=== PATIENT | female | born 1950 | race Caucasian/White ===

== ENCOUNTER 2017-08-11 09:49 | Emergency (ER) | payer MEDICARE, OTHER, SELFPAY ==
[2017-08-11 09:54] VITALS: BP 157/68; PULSE 68; RESP 16; TEMP 36.6; O2SAT 100
[2017-08-11] MEDS: MECLIZINE HCL 12.5 MG TABLET 50 MG PO (10:41)
--- NOTE | 2017-08-11 11:10 | DI.MRI.S_ITS ---
PROCEDURE: MR HEAD/BRAIN WO CON INDICATIONS: vertigo, unable to walk TECHNIQUE: Noncontrast axial T1 spin echo, axial T2 fast spin echo, sagittal and axial FLAIR, coronal T2 fast spin echo, axial gradient echo, axial diffusion and ADC through the brain. COMPARISON: [facility], CT, HEAD WITHOUT CONTRAST, 05/31/2011, 8:45. FINDINGS: Image quality: Excellent. CSF spaces: There is mild cerebral volume loss with prominence of the ventricles and sulci. Basal cisterns are patent. No extra-axial fluid collections. Brain: Diffusion weighted images demonstrate no acute infarcts. No intracranial hemorrhage, mass, or mass effect. There is minimal periventricular white matter T2 hyperintensity consistent with mild chronic small vessel ischemic changes. Brainstem appears normal. Normal intravascular flow voids are present. No abnormal intracranial enhancement. Skull and face: Calvarium has normal marrow signal. Orbits appear normal. Sinuses: Sinuses are clear. There is partial fluid opacification of the left mastoid air cells suggestive of mild mastoiditis. IMPRESSION: 1. No infarct or other acute intracranial abnormality. Dictated by: Rolan Pickard M.D. on 08/11/2017 at 12:47 Approved by: Rolan Pickard M.D. on 08/11/2017 at 12:50
[2017-08-11 11:19] LABS: Mean Corpuscular HGB Conc 34.1 % (30-36); Mean Corpuscular Hemoglobin 28.1 PG (26-34); Mean Corpuscular Volume 82.3 fL (80-100); Platelet Count 140 X10^3/uL (150-400); Red Blood Cell Count 5.34 X10^6/uL (4.0-5.2); Red Cell Distribution Width 14.1 % (11.6-14.8); White Blood Cell Count 8.1 X10^3/uL (4.5-11.0)
[2017-08-11 11:29] VITALS: BP 117/61; PULSE 63; RESP 16; O2SAT 100
[2017-08-11 11:36] LABS: Alanine Aminotransferase 38 IU/L (9-52); Albumin 4.6 g/dL (3.5-5.0); Albumin Globulin Ratio 1.4 (1.0-2.8); Alkaline Phosphatase 57 U/L (38-126); Aspartate Aminotransferase 30 IU/L (14-36); BUN Creatinine Ratio 21.4 (6-22); Bilirubin Total 0.6 mg/dL (0.2-1.3); Blood Urea Nitrogen 15 mg/dL (7-17); Calcium 10.4 mg/dL (8.4-10.2); Carbon Dioxide 25 mmol/L (22-32); Chloride 101 mmol/L (98-107); Estimated Glomerular Filt Rate > 60.0 mL/min (>60); Globulin 3.3 g/dL (1.7-4.1); Glucose 130 mg/dL (80-110); HEMOLYSIS < 15 (0-50); Magnesium 2.1 mg/dL (1.6-2.3); Potassium 4.7 mmol/L (3.4-5.1); Sodium 141 mmol/L (137-145); Total Protein 7.9 g/dL (6.3-8.2)
[2017-08-11 11:38] LABS: Morphology Comment Normal Morphology; Neutrophils Absolute Manual 5427 /uL (3000-5900); Total Cells Counted 100
[2017-08-11 11:54] LABS: Troponin I < 0.012 ng/mL (0.01-0.034)
[2017-08-11 13:39] VITALS: BP 122/67; PULSE 62; RESP 12; O2SAT 99
--- NOTE | 2017-08-11 13:48 | ED.DIZZY ---
HPI - Dizziness General Chief Complaint: Dizziness Stated Complaint: Vertigo History of Present Illness HPI Narrative: HPI 66-year-old female with a history of vertiginous episodes presents with a typical episode that is been present since yesterday morning. * Onset (acute prolonged episode, recurrent positional episodes, recurrent non-positional episodes): present since awakening yesterday, continuous with positional exacerbations. * Recent medication changes: [None] * Hearing changes: [None] * Neck pain, unusual neck trauma: [Denies trauma, working with head held in an usual position for an extended period of time, chiropractic manipulation, or lateral neck pain.] * Changes in vision: [denies blurring, diplopia, graying of vision or further acute changes.] M/S/F/SocHx notable for: right mastoiditis, status post resection; remainder reviewed with patient and in chart. ROS: Negative constitutional, eye, cardiovascular, pulmonary, GI, , MSK, skin, neurologic, psychiatric, endocrine unless noted in the HPI. Exam Gen: [pleasant, uncomfortable but nontoxic-appearing.] HEENT: [Normocephalic, atraumatic, TMs clear bilaterally without effusion, bulging, or erythema. Write external auditory canal significantly enlarged with well healed surgical scarring. Preauricular skin, pinna, and external canal without visible lesions bilaterally.] Resp: [Clear to auscultation bilaterally] Card: [Regular rate and rhythm with no murmurs rubs or gallops.] GI: [Nontender, nondistended] : Deferred MSK: No visible deformities, strength and tone WNL. Skin: Normal color with no visible lesions. Neuro: Gen. [AO x 3, no facial asymmetry, no gaze preference, no slurring of speech.] Cranial nerves. II-III: pupils equal and reactive to afferent and efferent stimuli (4->2mm bilaterally); III, IV, : EOMI, V1-V3: sensation to touch bilaterally intact; VII: no facial asymmetry (frown / smile); VIII: head impact testing without corrective saccades when the head is rotated to either side hearing grossly intact bilaterally; X: phonation intact, uvula midline; XI: trapezius 5/5 bilaterally, XII: tongue midline. Brainstem: horizontal eye movements with [smooth] conjugate pursuit and with a rightward fast beat nystagmus on the leftward gaze which is not fatigable, left eccentric gaze with nystagmus, right eccentric gaze with[out] nystagmus. Alternate cover test [without] skew. Cerebellar no pronator drift, [id number] testing without dysmetria, . 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 [place]-Hallpike: unable to tolerate. [place]: unable/unwilling to stand. Gait: unable/unwilling to stay in.. Psych: Mood and affect appropriate.[ Labs / Imaging (pertinent):] [ MRI brain: no infarct or other acute intracranial abnormality. WBC 8.1, hemoglobin 15.0 sodium 141, potassium 4.7, glucose 130, troponin less than 0.012. EKG: SR at [69] BPM with no ST-segment elevations or depressions, T-wave inversions or new LBBB. ME interval 160 msec, QTc 410 msec, no delta waves, epsilon waves, coved or saddle ST-segment changes in leads V1-3, preseptal or inferior lead Q-waves, biphasic P-waves, or T-wave inversions; no LVH. ] MDM Previous chart, nursing note, and vitals reviewed. A: 66-year-old female with a history of vertiginous episodes presents with a typical episode that is been present since yesterday morning. DDx: [acute vestibular syndrome (vestibulitis, labrynthitis, BPPV, Chiari malformation, cerebellar tumors, MS, anemia, cardiac, Meniere?s disease, medications, migraine associated vertigo, posterior circulation ischemia (posterior fossa CVA, vertebral artery stenosis or dissection, vertibrobasilar artery TIA, stenosis, or dissection).] Evaluation: MRI brain without evidence of Chiari malformation, cerebellar tumors, MS, or posterior circulation ischemia. No identifiable risk factors or findings on exam to suggest cervical artery dissection. Given the relatively thomas onset and sustained nature the patient's symptoms strongly doubt TIA/stenosis. Favor vestibulitis given the absence of hearing changes. Patient given meclizine with significant improvement symptoms and a steady gait. Impression: vertigo (please reference below for remainder of encounter information) Related Data Home Medications Medication Instructions Recorded Confirmed Allergy Relief(diphenhydramin) 1 tab PO PRN PRN 08/11/17 08/11/17 aspirin 81 mg PO DAILY 08/11/17 08/11/17 duloxetine [Cymbalta] 30 mg PO DAILY 08/11/17 08/11/17 gabapentin 200 mg PO BID 08/11/17 08/11/17 glipizide 2.5 mg PO BID 08/11/17 08/11/17 lisinopril 2.5 mg PO DAILY 08/11/17 08/11/17 metformin 1,000 mg PO BID 08/11/17 08/11/17 montelukast 10 mg PO BEDTIME 08/11/17 08/11/17 rosuvastatin 40 mg PO QPM 08/11/17 08/11/17 Previous Rx's Medication Instructions Recorded ranitidine HCl [Zantac] 150 mg PO BID #30 tab 11/05/12 Allergies Allergy/AdvReac Type Severity Reaction Status Date / Time codeine Allergy Mild EMESIS Verified 08/11/17 09:57 penicillin V Allergy Mild UNKNOWN Verified 08/11/17 09:57 Opioids - Morphine Analogues AdvReac Severe DEPENDENCE Verified 08/11/17 09:57 [OPIOIDS - MORPHINE ANALOGUES] [facility] Surgical History History of knee replacement History of total mastectomy Status post hysterectomy Family History Mother Cancer of breast Sister Cancer of breast Social History Smoking Status: Never smoker Exam Initial Vital Signs Initial Vital Signs: Vital Signs Temperature 97.9 F 08/11/17 09:54 Pulse Rate 68 08/11/17 09:54 Respiratory Rate 16 08/11/17 09:54 Blood Pressure 157/68 H 08/11/17 09:54 Pulse Oximetry 100 08/11/17 09:54 Course Orders Ordered: ED Orders 08/11/17 10:02 EKG-12 Lead Stat 08/11/17 11:08 Complete Blood Count MAN DIFF Stat Comprehensive Metabolic Panel Stat Magnesium Stat Troponin I Stat 08/11/17 11:10 MR head/brain wo con Stat Discontinued Medications Meclizine HCl (Antivert) 50 mg PO NOW ONE Stop: 08/11/17 10:38 Last Admin: 08/11/17 10:41 Dose: 50 mg Vital Signs - 8 hr 08/11/17 09:54 08/11/17 11:29 08/11/17 13:39 Temperature 97.9 F Pulse Rate 68 63 62 Respiratory Rate 16 16 12 Blood Pressure 157/68 H Blood Pressure [Left Arm] 117/61 122/67 H Pulse Oximetry 100 100 99 MDM - Dizziness Lab Data Result diagrams: 08/11/17 11:08 08/11/17 11:08 Lab Results 08/11/17 08/11/17 Range/Units 11:08 11:08 WBC 8.1 (4.5-11.0) X10^3/uL RBC 5.34 H (4.0-5.2) X10^6/uL Hgb 15.0 (12.0-16.0) g/dL Hct 44.0 (36-46) % MCV 82.3 (80-100) fL MCH 28.1 (26-34) PG MCHC 34.1 (30-36) % RDW 14.1 (11.6-14.8) % Plt Count 140 L (150-400) X10^3/uL Total Counted 100 Seg Neutrophils % 67.0 (38-70) % Lymphocytes % (Manual) 18.0 L (25-45) % Atypical Lymphs % 4.0 H ( - 0) % Monocytes % (Manual) 9.0 (2-11) % Eosinophils % (Manual) 2.0 (2-4) % Neutrophils # (Manual) 5427 (1468-7981) /uL Differential Comment Normal morphology RBC Morphology Not Reportable Sodium 141 (137-145) mmol/L Potassium 4.7 (3.4-5.1) mmol/L Chloride 101 (98-107) mmol/L Carbon Dioxide 25 (22-32) mmol/L BUN 15 (7-17) mg/dL Creatinine 0.70 (0.52-1.04) mg/dL Estimated GFR > 60.0 (>60) mL/min BUN/Creatinine Ratio 21.4 (6-22) Glucose 130 H (80-110) mg/dL Calcium 10.4 H (8.4-10.2) mg/dL Magnesium 2.1 (1.6-2.3) mg/dL Total Bilirubin 0.6 (0.2-1.3) mg/dL AST 30 (14-36) IU/L ALT 38 (9-52) IU/L Alkaline Phosphatase 57 (38-126) U/L Troponin I < 0.012 (0.01-0.034) ng/mL Total Protein 7.9 (6.3-8.2) g/dL Albumin 4.6 (3.5-5.0) g/dL Globulin 3.3 (1.7-4.1) g/dL Albumin/Globulin Ratio 1.4 (1.0-2.8) Discharge Plan Departure Prescriptions: No Action ranitidine HCl [Zantac] 150 MG tablet 150 mg PO BID Qty: 30 RF: 0 duloxetine [Cymbalta] 30 MG capsule,delayed release(DR/EC) 30 mg PO DAILY RF: 0 Allergy Relief(diphenhydramin) 1 tab PO PRN PRN (Reason: Allergy Symptoms) RF: 0 aspirin 81 mg Tablet,Delayed Release (Dr/Ec) 81 mg PO DAILY RF: 0 glipizide 2.5 mg tablet extended release 24hr 2.5 mg PO BID RF: 0 metformin 1,000 mg Tablet 1,000 mg PO BID RF: 0 montelukast 10 mg Tablet 10 mg PO BEDTIME RF: 0 gabapentin 100 mg Capsule 200 mg PO BID RF: 0 lisinopril 2.5 mg tablet 2.5 mg PO DAILY RF: 0 rosuvastatin 40 mg tablet 40 mg PO QPM RF: 0
--- NOTE | 2017-08-11 13:51 | ED_ITS ---
HPI - Dizziness General Chief Complaint: Dizziness Stated Complaint: Vertigo History of Present Illness HPI Narrative: HPI 66-year-old female with a history of vertiginous episodes presents with a typical episode that is been present since yesterday morning. * Onset (acute prolonged episode, recurrent positional episodes, recurrent non- positional episodes): present since awakening yesterday, continuous with positional exacerbations. * Recent medication changes: [None] * Hearing changes: [None] * Neck pain, unusual neck trauma: [Denies trauma, working with head held in an usual position for an extended period of time, chiropractic manipulation, or lateral neck pain.] * Changes in vision: [denies blurring, diplopia, graying of vision or further acute changes.] M/S/F/SocHx notable for: right mastoiditis, status post resection; remainder reviewed with patient and in chart. ROS: Negative constitutional, eye, cardiovascular, pulmonary, GI, , MSK, skin , neurologic, psychiatric, endocrine unless noted in the HPI. Exam Gen: [pleasant, uncomfortable but nontoxic-appearing.] HEENT: [Normocephalic, atraumatic, TMs clear bilaterally without effusion, bulging, or erythema. Write external auditory canal significantly enlarged with well healed surgical scarring. Preauricular skin, pinna, and external canal without visible lesions bilaterally.] Resp: [Clear to auscultation bilaterally] Card: [Regular rate and rhythm with no murmurs rubs or gallops.] GI: [Nontender, nondistended] : Deferred MSK: No visible deformities, strength and tone WNL. Skin: Normal color with no visible lesions. Neuro: Gen. [AO x 3, no facial asymmetry, no gaze preference, no slurring of speech.] Cranial nerves. II-III: pupils equal and reactive to afferent and efferent stimuli (4->2mm bilaterally); III, IV, : EOMI, V1-V3: sensation to touch bilaterally intact; VII: no facial asymmetry (frown / smile); VIII: head impact testing without corrective saccades when the head is rotated to either side hearing grossly intact bilaterally; X: phonation intact, uvula midline; XI: trapezius 5/5 bilaterally, XII: tongue midline. Brainstem: horizontal eye movements with [smooth] conjugate pursuit and with a rightward fast beat nystagmus on the leftward gaze which is not fatigable, left eccentric gaze with nystagmus, right eccentric gaze with[out] nystagmus. Alternate cover test [without] skew. Cerebellar no pronator drift, [id number] testing without dysmetria, . Motor bilateral 5/5 watch assembly instructor strength and intact hand sensation to touch, bilateral 5/5 dorsiflexion/plantarflexion and foot sensation intact to touch. [place]Hallpike: unable to tolerate. [place]: unable/unwilling to stand. Gait: unable/unwilling to stay in.. Psych: Mood and affect appropriate.[ Labs / Imaging (pertinent):] [ MRI brain: no infarct or other acute intracranial abnormality. WBC 8.1, hemoglobin 15.0 sodium 141, potassium 4.7, glucose 130, troponin less than 0.012. EKG: SR at [69] BPM with no ST-segment elevations or depressions, T-wave inversions or new LBBB. SC interval 160 msec, QTc 410 msec, no delta waves, epsilon waves, coved or saddle ST-segment changes in leads V1-3, preseptal or inferior lead Q-waves, biphasic P-waves, or T-wave inversions; no LVH. ] MDM Previous chart, nursing note, and vitals reviewed. A: 66-year-old female with a history of vertiginous episodes presents with a typical episode that is been present since yesterday morning. DDx: [acute vestibular syndrome (vestibulitis, labrynthitis, BPPV, Chiari malformation, cerebellar tumors, MS, anemia, cardiac, Meniere?s disease, medications, migraine associated vertigo, posterior circulation ischemia ( posterior fossa CVA, vertebral artery stenosis or dissection, vertibrobasilar artery TIA, stenosis, or dissection).] Evaluation: MRI brain without evidence of Chiari malformation, cerebellar tumors , MS, or posterior circulation ischemia. No identifiable risk factors or findings on exam to suggest cervical artery dissection. Given the relatively thomas onset and sustained nature the patient's symptoms strongly doubt TIA/ stenosis. Favor vestibulitis given the absence of hearing changes. Patient given meclizine with significant improvement symptoms and a steady gait. Impression: vertigo (please reference below for remainder of encounter information) Related Data Home Medications Medication Instructions Recorded Confirmed Allergy Relief(diphenhydramin) 1 tab PO PRN PRN 08/11/17 08/11/17 aspirin 81 mg PO DAILY 08/11/17 08/11/17 duloxetine [Cymbalta] 30 mg PO DAILY 08/11/17 08/11/17 gabapentin 200 mg PO BID 08/11/17 08/11/17 glipizide 2.5 mg PO BID 08/11/17 08/11/17 lisinopril 2.5 mg PO DAILY 08/11/17 08/11/17 metformin 1,000 mg PO BID 08/11/17 08/11/17 montelukast 10 mg PO BEDTIME 08/11/17 08/11/17 rosuvastatin 40 mg PO QPM 08/11/17 08/11/17 Previous Rx's Medication Instructions Recorded ranitidine HCl [Zantac] 150 mg PO BID #30 tab 11/05/12 Allergies Allergy/AdvReac Type Severity Reaction Status Date / Time codeine Allergy Mild EMESIS Verified 08/11/17 09:57 penicillin V Allergy Mild UNKNOWN Verified 08/11/17 09:57 Opioids - Morphine Analogues AdvReac Severe DEPENDENCE Verified 08/11/17 09:57 [OPIOIDS - MORPHINE ANALOGUES] [facility] Surgical History History of knee replacement History of total mastectomy Status post hysterectomy Family History Mother Cancer of breast Sister Cancer of breast Social History Smoking Status: Never smoker Exam Initial Vital Signs Initial Vital Signs: Vital Signs Temperature 97.9 F 08/11/17 09:54 Pulse Rate 68 08/11/17 09:54 Respiratory Rate 16 08/11/17 09:54 Blood Pressure 157/68 H 08/11/17 09:54 Pulse Oximetry 100 08/11/17 09:54 Course Orders Ordered: ED Orders 08/11/17 10:02 EKG-12 Lead Stat 08/11/17 11:08 Complete Blood Count MAN DIFF Stat Comprehensive Metabolic Panel Stat Magnesium Stat Troponin I Stat 08/11/17 11:10 MR head/brain wo con Stat Discontinued Medications Meclizine HCl (Antivert) 50 mg PO NOW ONE Stop: 08/11/17 10:38 Last Admin: 08/11/17 10:41 Dose: 50 mg Vital Signs - 8 hr 08/11/17 09:54 08/11/17 11:29 08/11/17 13:39 Temperature 97.9 F Pulse Rate 68 63 62 Respiratory Rate 16 16 12 Blood Pressure 157/68 H Blood Pressure [Left Arm] 117/61 122/67 H Pulse Oximetry 100 100 99 MDM - Dizziness Lab Data Result diagrams: 08/11/17 11:08 08/11/17 11:08 Lab Results 08/11/17 08/11/17 Range/Units 11:08 11:08 WBC 8.1 (4.5-11.0) X10^3/uL RBC 5.34 H (4.0-5.2) X10^6/uL Hgb 15.0 (12.0-16.0) g/dL Hct 44.0 (36-46) % MCV 82.3 (80-100) fL MCH 28.1 (26-34) PG MCHC 34.1 (30-36) % RDW 14.1 (11.6-14.8) % Plt Count 140 L (150-400) X10^3/uL Total Counted 100 Seg Neutrophils % 67.0 (38-70) % Lymphocytes % (Manual) 18.0 L (25-45) % Atypical Lymphs % 4.0 H ( - 0) % Monocytes % (Manual) 9.0 (2-11) % Eosinophils % (Manual) 2.0 (2-4) % Neutrophils # (Manual) 5427 (0677-4181) /uL Differential Comment Normal morphology RBC Morphology Not Reportable Sodium 141 (137-145) mmol/L Potassium 4.7 (3.4-5.1) mmol/L Chloride 101 (98-107) mmol/L Carbon Dioxide 25 (22-32) mmol/L BUN 15 (7-17) mg/dL Creatinine 0.70 (0.52-1.04) mg/dL Estimated GFR > 60.0 (>60) mL/min BUN/Creatinine Ratio 21.4 (6-22) Glucose 130 H (80-110) mg/dL Calcium 10.4 H (8.4-10.2) mg/dL Magnesium 2.1 (1.6-2.3) mg/dL Total Bilirubin 0.6 (0.2-1.3) mg/dL AST 30 (14-36) IU/L ALT 38 (9-52) IU/L Alkaline Phosphatase 57 (38-126) U/L Troponin I < 0.012 (0.01-0.034) ng/mL Total Protein 7.9 (6.3-8.2) g/dL Albumin 4.6 (3.5-5.0) g/dL Globulin 3.3 (1.7-4.1) g/dL Albumin/Globulin Ratio 1.4 (1.0-2.8) Discharge Plan Departure Prescriptions: No Action ranitidine HCl [Zantac] 150 MG tablet 150 mg PO BID Qty: 30 RF: 0 duloxetine [Cymbalta] 30 MG capsule,delayed release(DR/EC) 30 mg PO DAILY RF: 0 Allergy Relief(diphenhydramin) 1 tab PO PRN PRN (Reason: Allergy Symptoms) RF: 0 aspirin 81 mg Tablet,Delayed Release (Dr/Ec) 81 mg PO DAILY RF: 0 glipizide 2.5 mg tablet extended release 24hr 2.5 mg PO BID RF: 0 metformin 1,000 mg Tablet 1,000 mg PO BID RF: 0 montelukast 10 mg Tablet 10 mg PO BEDTIME RF: 0 gabapentin 100 mg Capsule 200 mg PO BID RF: 0 lisinopril 2.5 mg tablet 2.5 mg PO DAILY RF: 0 rosuvastatin 40 mg tablet 40 mg PO QPM RF: 0
== END 2017-08-11 13:58 | disposition home or self-care (01) ==
PROVIDERS: Emergency Provider Emergency Medicine; Family Provider Family Medicine; PCP Family Medicine
DX: R42 Dizziness and giddiness (principal)
CPT/HCPCS: 36415; 70551; 80053; 81003; 82962; 83735; 84484; 85025; 93005; 99283; 99285

== ENCOUNTER → 2018-01-26 13:56 | Outpatient (CLI) | payer MEDICARE, OTHER, SELFPAY | PROVIDERS: PCP Family Medicine; Visit Provider Family Medicine | DX: M85.832 Other specified disorders of bone density and structure, left forearm (principal); Z78.0 Asymptomatic menopausal state | CPT/HCPCS: 77080 ==

== ENCOUNTER 2019-04-11 13:30 | Emergency (ER) | payer MEDICARE, OTHER, SELFPAY ==
[2019-04-11 13:40] VITALS: BP 165/91; PULSE 98; RESP 15; TEMP 36.7; O2SAT 100; BMI 30.8
--- NOTE | 2019-04-11 13:51 | ED.GENADULT ---
HPI - General Adult General Chief complaint: Syncope Stated complaint: Vomiting Time Seen by Provider: 04/11/19 13:49 Source: patient and family Mode of arrival: EMS Limitations: no limitations History of Present Illness HPI narrative: 68-year-old female who has not been feeling well for the past 3 days with multiple episodes of vomiting here for evaluation of just not feeling well. She is a nrt-[id number] diabetic. Abdominal pain around the time of vomiting. No diarrhea. No sick contacts. Just generalized malaise. Subjective fevers. No urinary symptoms. Related Data Home Medications Medication Instructions Recorded Confirmed Allergy Relief(diphenhydramin) 1 tab PO PRN PRN 08/11/17 08/11/17 aspirin 81 mg PO DAILY 08/11/17 08/11/17 duloxetine [Cymbalta] 30 mg PO DAILY 08/11/17 08/11/17 gabapentin 200 mg PO BID 08/11/17 08/11/17 glipizide 2.5 mg PO BID 08/11/17 08/11/17 lisinopril 2.5 mg PO DAILY 08/11/17 08/11/17 metformin 1,000 mg PO BID 08/11/17 08/11/17 montelukast 10 mg PO BEDTIME 08/11/17 08/11/17 rosuvastatin 40 mg PO QPM 08/11/17 08/11/17 Previous Rx's Medication Instructions Recorded ranitidine HCl [Zantac] 150 mg PO BID #30 tab 11/05/12 meclizine 50 mg PO BID PRN #10 tab 08/11/17 ondansetron 4 mg PO Q6H PRN #10 tab 04/11/19 Allergies Allergy/AdvReac Type Severity Reaction Status Date / Time codeine Allergy Mild EMESIS Verified 08/11/17 09:57 penicillin V Allergy Mild UNKNOWN Verified 08/11/17 09:57 Opioids - Morphine Analogues AdvReac Severe DEPENDENCE Verified 08/11/17 09:57 [OPIOIDS - MORPHINE ANALOGUES] Review of Systems Constitutional Constitutional: Reports fatigue, Denies fever(s) and Reports malaise Cardiovascular Cardiovascular: Denies chest pain and Denies dyspnea Respiratory Respiratory: Denies dyspnea Gastrointestinal Gastrointestinal: Reports abdominal pain, Denies change in stool character, Reports nausea and Reports vomiting Genitourinary Genitourinary: Denies dysuria Musculoskeletal Musculoskeletal: Denies myalgias and Denies arthralgias Integumentary/Breasts Skin/Breast: Denies rash Neurologic Neurologic: Denies behavioral changes Psychiatric Psychiatric: Denies behavioral changes Endocrine Endocrine: Reports fatigue Hematologic/Lymphatic Hematologic/Lymphatic: Denies easy bleeding and Denies easy bruising Patient History Medical History Diabetes (Acute) Surgical History (Updated 07/08/17 @ 05:56 by JEFFERY Trammell) History of knee replacement History of total mastectomy Status post hysterectomy Family History (Updated 05/27/13 @ 00:00 by JEFFERY Trammell) Mother Cancer of breast Sister Cancer of breast Social History Smoking Status: Never smoker Smoking Status: Never smoker alcohol intake frequency: 0-2 drinks per day Substance Use Type: does not use Exam Initial Vital Signs Initial Vital Signs: Vital Signs Temperature 98.0 F 04/11/19 13:40 Pulse Rate 98 H 04/11/19 13:40 Respiratory Rate 15 04/11/19 13:40 Blood Pressure 165/91 H 04/11/19 13:40 Pulse Oximetry 100 04/11/19 13:40 Const General: cooperative Limitations: mental status not altered HENNM Head: normal to inspection and normocephalic Resp Effort & Inspection: normal respiratory effort Auscultation: clear to auscultation bilaterally Cardio Rate: regular rate Rhythm: regular rhythm GI Inspection: non-distended Palpation: soft and No firm Skin Lesions: no lesions Rashes: no rashes Neuro General: alert and awake Cognition: normal cognition Speech: speech normal Extrem General: normal to inspection and capillary refill normal Psych Appearance: grossly normal and well kempt Course Orders Ordered: ED Orders 04/11/19 14:10 Influenza A & B (PCR) Stat 04/11/19 14:12 EKG-12 Lead Stat 04/11/19 14:15 Complete Blood Count AUTO DIFF Stat Comprehensive Metabolic Panel Stat Ketones (Beta-Hydroxybutyrate) Stat Lipase Stat Procalcitonin Stat Troponin I Stat 04/11/19 15:00 Urine Microscopic Stat 04/11/19 15:44 Venous Blood Gas Stat Sodium Chloride (Normal Saline 0.9%) 1,000 mls @ 150 mls/hr IV CONT JOHNNIE Last Admin: 04/11/19 17:36 Dose: 150 mls/hr Documented by: FELA Discontinued Medications Sodium Chloride (Normal Saline 0.9%) 1,000 mls @ 1,000 mls/hr IV BOLUS ONE Stop: 04/11/19 14:51 Last Infusion: 04/11/19 15:30 Dose: 0 mls/hr Documented by: Admin: 04/11/19 14:19 Dose: 1,000 mls/hr Documented by: FELA Sodium Chloride (Normal Saline 0.9%) 1,000 mls @ 1,000 mls/hr IV BOLUS ONE Stop: 04/11/19 16:43 Last Infusion: 04/11/19 17:03 Dose: 0 mls/hr Documented by: Admin: 04/11/19 16:01 Dose: 1,000 mls/hr Documented by: FELA Metoclopramide HCl (Reglan) 10 mg IV NOW ONE Stop: 04/11/19 17:26 Last Admin: 04/11/19 17:32 Dose: 10 mg Documented by: FELA Ondansetron HCl (Zofran) 4 mg IV NOW ONE Stop: 04/11/19 13:53 Last Admin: 04/11/19 14:19 Dose: 4 mg Documented by: FELA Ondansetron HCl (Zofran) 4 mg IV NOW ONE Stop: 04/11/19 16:28 Last Admin: 04/11/19 16:35 Dose: 4 mg Documented by: FELA Vital Signs Vital signs: Vital Signs - 8 hr 04/11/19 13:40 04/11/19 14:47 04/11/19 15:21 Temperature 98.0 F Pulse Rate 98 H 70 71 Respiratory Rate 15 22 15 Blood Pressure 165/91 H Blood Pressure [Right Wrist] 182/80 H 141/81 H Pulse Oximetry 100 97 94 04/11/19 16:30 04/11/19 17:00 Temperature Pulse Rate 66 67 Respiratory Rate 27 H 19 Blood Pressure Blood Pressure [Right Wrist] 122/99 H 169/83 H Pulse Oximetry 99 99 Medical Decision Making Lab Data Lab results reviewed: Yes I reviewed the patient's lab results. Result diagrams: 04/11/19 14:15 04/11/19 14:15 Labs: Lab Results 04/11/19 04/11/19 04/11/19 Range/Units 14:10 14:15 14:15 WBC 8.6 (4.5-11.0) X10^3/uL RBC 5.79 H (4.0-5.2) X10^6/uL Hgb 16.6 H (12.0-16.0) g/dL Hct 48.6 H (36-46) % MCV 84.0 (80-100) fL MCH 28.7 (26-34) PG MCHC 34.1 (30-36) % RDW 13.3 (11.6-14.8) % Plt Count 153 (150-400) X10^3/uL Neut % (Auto) 63.5 (50-75) % Lymph % (Auto) 27.6 (25-40) % Christian % (Auto) 7.5 (3-14) % Eos % (Auto) 0.7 L (2-4) % Baso % (Auto) 0.7 (0-2) % Neut # (Auto) 5500 (3389-2594) /uL Lymph # (Auto) 2400 (0936-4048) /uL Christian # (Auto) 600 (0-900) /uL Eos # (Auto) 100 (0-450) /uL Baso # (Auto) 100 (0-100) /uL RBC Morphology Normal morphology Sodium 138 (137-145) mmol/L Potassium 4.7 (3.4-5.1) mmol/L Chloride 102 (98-107) mmol/L Carbon Dioxide 20 L (22-32) mmol/L BUN 15 (7-17) mg/dL Creatinine 0.60 (0.52-1.04) mg/dL Estimated GFR > 60.0 (>60) mL/min BUN/Creatinine Ratio 25.0 H (6-22) Glucose 136 H (80-110) mg/dL Calcium 10.6 H (8.4-10.2) mg/dL Total Bilirubin 1.1 (0.2-1.3) mg/dL AST 76 H (14-36) IU/L ALT 47 H (<35) IU/L Alkaline Phosphatase 66 (38-126) U/L Troponin I < 0.012 (0.01-0.034) ng/mL Total Protein 8.6 H (6.3-8.2) g/dL Albumin 5.2 H (3.5-5.0) g/dL Globulin 3.4 (1.7-4.1) g/dL Albumin/Globulin Ratio 1.5 (1.0-2.8) Lipase 190 (23-300) U/L Procalcitonin (<0.5) ng/mL Urine RBC (0-5/HPF) Urine WBC (0-5/HPF) Ur Squamous Epith Cells (0-5/HPF) Urine Bacteria (None) Ur Culture Indicated? Ketones 2.22 H (<0.27) mmol/L Influenza A (RT-PCR) Flu a negative (NEGATIVE) Influenza B (RT-PCR) Flu b negative (NEGATIVE) 04/11/19 04/11/19 Range/Units 14:15 15:00 WBC (4.5-11.0) X10^3/uL RBC (4.0-5.2) X10^6/uL Hgb (12.0-16.0) g/dL Hct (36-46) % MCV (80-100) fL MCH (26-34) PG MCHC (30-36) % RDW (11.6-14.8) % Plt Count (150-400) X10^3/uL Neut % (Auto) (50-75) % Lymph % (Auto) (25-40) % Christian % (Auto) (3-14) % Eos % (Auto) (2-4) % Baso % (Auto) (0-2) % Neut # (Auto) (1241-3013) /uL Lymph # (Auto) (3737-8613) /uL Christian # (Auto) (0-900) /uL Eos # (Auto) (0-450) /uL Baso # (Auto) (0-100) /uL RBC Morphology Sodium (137-145) mmol/L Potassium (3.4-5.1) mmol/L Chloride (98-107) mmol/L Carbon Dioxide (22-32) mmol/L BUN (7-17) mg/dL Creatinine (0.52-1.04) mg/dL Estimated GFR (>60) mL/min BUN/Creatinine Ratio (6-22) Glucose (80-110) mg/dL Calcium (8.4-10.2) mg/dL Total Bilirubin (0.2-1.3) mg/dL AST (14-36) IU/L ALT (<35) IU/L Alkaline Phosphatase (38-126) U/L Troponin I (0.01-0.034) ng/mL Total Protein (6.3-8.2) g/dL Albumin (3.5-5.0) g/dL Globulin (1.7-4.1) g/dL Albumin/Globulin Ratio (1.0-2.8) Lipase (23-300) U/L Procalcitonin < 0.05 (<0.5) ng/mL Urine RBC None seen (0-5/HPF) Urine WBC 0-1/hpf (0-5/HPF) Ur Squamous Epith Cells 1-5 /hpf (0-5/HPF) Urine Bacteria Few (2-10) H (None) Ur Culture Indicated? Cult not indicated Ketones (<0.27) mmol/L Influenza A (RT-PCR) (NEGATIVE) Influenza B (RT-PCR) (NEGATIVE) Urine Dip Bedside Urine Glucose Negative Bedside Urine Bilirubin - Negative Bedside Urine Ketone ++ 40 Urine Specific [place] 1.015 Bedside Urine Occult Blood - Negative Bedside Urine pH 6 Bedside Urine Protein +/- 15 Bedside Urine Urobilinogen - Negative Bedside Urine Nitrite - Negative Bedside Urine Leukocytes - Negative Esterase Point of care testing: Urine Dip Bedside Urine Glucose Negative Bedside Urine Bilirubin - Negative Bedside Urine Ketone ++ 40 Urine Specific [place] 1.015 Bedside Urine Occult Blood - Negative Bedside Urine pH 6 Bedside Urine Protein +/- 15 Bedside Urine Urobilinogen - Negative Bedside Urine Nitrite - Negative Bedside Urine Leukocytes - Negative Esterase ECG Data Attestation: I personally reviewed and interpreted this ECG as follows: Prior ECG tracings: not available for review Interpretation: Sinus rhythm Ventricular rate is 70 Normal axis Normal QRS Normal QTC No ST T wave changes MDM Narrative Medical decision making narrative: Lab work and physical exam consistent with degree of dehydration. Was given fluids. Did improve with 1st dose of Zofran however started vomiting with oral challenge. Second dose of Zofran did not seem to help however Reglan did seem to improve her symptoms. She declined the VBG. I do have low suspicion for DKA. She had a benign abdominal exam. Patient was able to tolerate fluids after the Reglan. States she was feeling better. Heart rate unremarkable. Patient is asking to go home. Was sent home with medicines. She was given return precautions and follow-up instructions. She expressed understanding and agreement with plan. Discharge Plan Departure Patient Disposition: Home Clinical Impression: Nausea and vomiting Qualifiers: Vomiting type: unspecified Vomiting Intractability: unspecified Qualified Code(s): R11.2 - Nausea with vomiting, unspecified Instructions: Nausea and Vomiting-Adult Activity Restrictions/Additional Instructions: Recommend that you increase your fluid intake by taking small amounts of fluid over long periods of time. Recommend a bland diet when you feel able. Continue the rest of your medications as directed. Contact your primary provider for follow-up. Return to the emergency department for any new or worsening symptoms Prescriptions: New ondansetron 4 mg tablet,disintegrating 4 mg PO Q6H PRN (Reason: nausea and vomiting) Qty: 10 RF: 0 No Action ranitidine HCl [Zantac] 150 MG tablet 150 mg PO BID Qty: 30 RF: 0 duloxetine [Cymbalta] 30 MG capsule,delayed release(DR/EC) 30 mg PO DAILY RF: 0 Allergy Relief(diphenhydramin) 1 tab PO PRN PRN (Reason: Allergy Symptoms) RF: 0 aspirin 81 mg Tablet,Delayed Release (Dr/Ec) 81 mg PO DAILY RF: 0 glipizide 2.5 mg tablet extended release 24hr 2.5 mg PO BID RF: 0 metformin 1,000 mg Tablet 1,000 mg PO BID RF: 0 montelukast 10 mg Tablet 10 mg PO BEDTIME RF: 0 gabapentin 100 mg Capsule 200 mg PO BID RF: 0 lisinopril 2.5 mg tablet 2.5 mg PO DAILY RF: 0 rosuvastatin 40 mg tablet 40 mg PO QPM RF: 0 meclizine 25 mg tablet 50 mg PO BID PRN (Reason: vertigo) Qty: 10 RF: 0 Referrals: Brittney Clancy MD [Primary Care Provider] -
[2019-04-11] MEDS: ONDANSETRON 4 MG/2 ML INJ IV ×3 (14:19→18:40)
[2019-04-11] MEDS: SODIUM CHLORIDE 0.9% 1,000 ML 1000 ML IV ×2 (14:19→16:01)
[2019-04-11 14:23] LABS: Basophils Absolute Auto 100 /uL (0-100); Basophils Percent Auto 0.7 % (0-2); Eosinophils Absolute Auto 100 /uL (0-450); Eosinophils Percent Auto 0.7 % (2-4); Hematocrit 48.6 % (36-46); Hemoglobin 16.6 g/dL (12.0-16.0); Lymphocytes Absolute Auto 2400 /uL (1100-4500); Lymphocytes Percent Auto 27.6 % (25-40); Mean Corpuscular HGB Conc 34.1 % (30-36); Mean Corpuscular Hemoglobin 28.7 PG (26-34); Monocytes Absolute Auto 600 /uL (0-900); Monocytes Percent Auto 7.5 % (3-14); Neutrophils Absolute Auto 5500 /uL (1500-7000); Neutrophils Percent Auto 63.5 % (50-75); Platelet Count 153 X10^3/uL (150-400); Red Blood Cell Count 5.79 X10^6/uL (4.0-5.2); Red Cell Distribution Width 13.3 % (11.6-14.8); White Blood Cell Count 8.6 X10^3/uL (4.5-11.0)
[2019-04-11 14:28] LABS: Add Manual Diff / Slide Review SLIDE REVIEW
[2019-04-11 14:39] LABS: Alanine Aminotransferase 47 IU/L (<35); Albumin 5.2 g/dL (3.5-5.0); Albumin Globulin Ratio 1.5 (1.0-2.8); Alkaline Phosphatase 66 U/L (38-126); Aspartate Aminotransferase 76 IU/L (14-36); Bilirubin Total 1.1 mg/dL (0.2-1.3); Blood Urea Nitrogen 15 mg/dL (7-17); Calcium 10.6 mg/dL (8.4-10.2); Carbon Dioxide 20 mmol/L (22-32); Chloride 102 mmol/L (98-107); Estimated Glomerular Filt Rate > 60.0 mL/min (>60); Globulin 3.4 g/dL (1.7-4.1); Glucose 136 mg/dL (80-110); Lipase 190 U/L (23-300); Sodium 138 mmol/L (137-145); Total Protein 8.6 g/dL (6.3-8.2)
[2019-04-11 14:45] LABS: HEMOLYSIS 69 (0-50); Potassium 4.7 mmol/L (3.4-5.1)
[2019-04-11 14:47] VITALS: BP 182/80; PULSE 70; RESP 22; O2SAT 97
[2019-04-11 14:50] LABS: RBC Morphology Normal Morphology
[2019-04-11 14:51] LABS: Troponin I < 0.012 ng/mL (0.01-0.034)
[2019-04-11 14:57] LABS: Procalcitonin < 0.05 ng/mL (<0.5)
[2019-04-11 15:00] LABS: Influenza A - CEPHEID Flu A NEGATIVE (NEGATIVE); Influenza B - CEPHEID Flu B NEGATIVE (NEGATIVE)
[2019-04-11 15:01] LABS: Ketones (Beta-Hydroxybutyrate) 2.22 mmol/L (<0.27)
[2019-04-11 15:21] VITALS: BP 141/81; PULSE 71; RESP 15; O2SAT 94
[2019-04-11 15:30] LABS: RBC Urine None Seen (0-5/HPF)
[2019-04-11 15:37] LABS: Bacteria Urine Few (2-10); Squamous Epithelial Cell Urine 1-5 /HPF (0-5/HPF); WBC Urine 0-1/HPF (0-5/HPF)
[2019-04-11 15:38] LABS: Culture Indicated Urine Cult Not Indicated
[2019-04-11 16:30] VITALS: BP 122/99; PULSE 66; RESP 27; O2SAT 99
[2019-04-11 17:00] VITALS: BP 169/83; PULSE 67; RESP 19; O2SAT 99
[2019-04-11] MEDS: METOCLOPRAMIDE 10 MG/2 ML INJ IV (17:32)
[2019-04-11] MEDS: SODIUM CHLORIDE 0.9% 1,000 ML 150 ML IV (17:36)
[2019-04-11] MEDS: ONDANSETRON 4 MG ODT PREPACK 1 BOTTLE MISC (18:40)
[2019-04-11 18:45] VITALS: BP 143/72; PULSE 69; O2SAT 97
== END 2019-04-11 19:04 | disposition home or self-care (01) ==
PROVIDERS: Emergency Provider Emergency Medicine; PCP Family Medicine
DX: R11.2 Nausea with vomiting, unspecified (principal); R10.9 Unspecified abdominal pain; E11.8 Type 2 diabetes mellitus with unspecified complications; Z79.82 Long term (current) use of aspirin
CPT/HCPCS: 36415; 80053; 81003; 81015; 82009; 83690; 84145; 84484; 85025; 87502; 93005; 96361; 96374; 96375; 96376; 99284; J2405; J2765

== ENCOUNTER 2019-06-01 15:56 | Emergency (ER) | payer MEDICARE, OTHER, SELFPAY ==
--- NOTE | 2019-06-01 15:58 | DI.RAD.S_ITS ---
PROCEDURE: XR CHEST 1V INDICATIONS: Chest pain TECHNIQUE: One view of the chest was acquired. COMPARISON: [facility], , CHEST 1 VIEW, 11/04/2013, 13:39. FINDINGS: Surgical changes and devices: None. Lungs and pleura: Lungs are clear. No pleural effusions or pneumothorax. Mediastinum: Mediastinal contours appear normal. Heart size is normal. Bones and chest wall: No suspicious bony lesions. Overlying soft tissues appear unremarkable. IMPRESSION: No acute cardiopulmonary disease. Dictated by: Ani Valente M.D. on 06/01/2019 at 16:20 Approved by: Ani Valente M.D. on 06/01/2019 at 16:21
--- NOTE | 2019-06-01 16:01 | ED_ITS ---
HPI - General Adult General Chief complaint: Chest Pain Stated complaint: Chest pain x2days Time Seen by Provider: 06/01/19 15:57 Source: patient Mode of arrival: Ambulatory Limitations: no limitations History of Present Illness HPI narrative: 68-year-old female here for evaluation of 2 days of epigastric and retrosternal chest discomfort. Patient states that she does have a history of an ulcer and reflux disease. She states that it feels somewhat like that but also somewhat different. No shortness of breath. Unsure if it is changed with eating. Not change with movement or breathing. Has been constant for the past 2 days. Is taking Zantac but recently was decreased from 2 times a day to 1 time a day. Some nausea no vomiting. Related Data Home Medications Medication Instructions Recorded Confirmed Allergy Relief(diphenhydramin) 1 tab PO PRN PRN 08/11/17 08/11/17 aspirin 81 mg PO DAILY 08/11/17 08/11/17 duloxetine [Cymbalta] 30 mg PO DAILY 08/11/17 08/11/17 gabapentin 200 mg PO BID 08/11/17 08/11/17 glipizide 2.5 mg PO BID 08/11/17 08/11/17 lisinopril 2.5 mg PO DAILY 08/11/17 08/11/17 metformin 1,000 mg PO BID 08/11/17 08/11/17 montelukast 10 mg PO BEDTIME 08/11/17 08/11/17 rosuvastatin 40 mg PO QPM 08/11/17 08/11/17 Previous Rx's Medication Instructions Recorded ranitidine HCl [Zantac] 150 mg PO BID #30 tab 11/05/12 meclizine 50 mg PO BID PRN #10 tab 08/11/17 ondansetron 4 mg PO Q6H PRN #10 tab 04/11/19 famotidine 20 mg PO BID #60 tab 06/01/19 sucralfate [Carafate] 1 gram PO QACHS #90 tab 06/01/19 Allergies Allergy/AdvReac Type Severity Reaction Status Date / Time codeine Allergy Mild EMESIS Verified 06/01/19 16:51 penicillin V Allergy Mild UNKNOWN Verified 06/01/19 16:51 Opioids - Morphine Analogues AdvReac Severe DEPENDENCE Verified 06/01/19 16:51 [OPIOIDS - MORPHINE ANALOGUES] Review of Systems Constitutional Constitutional: Denies fever(s) and Denies headache(s) ENT Ears, Nose, Mouth, and Throat: Denies headache(s) Cardiovascular Cardiovascular: Reports chest pain, Denies edema, Denies irregular heart rhythm, Denies palpitations and Denies dyspnea Respiratory Respiratory: Denies cough and Denies dyspnea Gastrointestinal Gastrointestinal: Reports abdominal pain (Epigastric), Denies change in stool character, Reports nausea and Denies vomiting Genitourinary Genitourinary: Denies dysuria Musculoskeletal Musculoskeletal: Denies myalgias and Denies arthralgias Integumentary/Breasts Skin/Breast: Denies lesions and Denies rash Neurologic Neurologic: Denies behavioral changes and Denies headache(s) Psychiatric Psychiatric: Denies behavioral changes Endocrine Endocrine: Denies palpitations Hematologic/Lymphatic Hematologic/Lymphatic: Denies easy bleeding and Denies easy bruising Patient History Medical History Diabetes (Acute) Surgical History History of knee replacement History of total mastectomy Status post hysterectomy Family History Mother Cancer of breast Sister Cancer of breast Social History Smoking Status: Never smoker Smoking Status: Never smoker alcohol intake frequency: 0-2 drinks per day Substance Use Type: does not use Exam Initial Vital Signs Initial Vital Signs: Vital Signs Temperature 98.1 F 06/01/19 16:06 Pulse Rate 88 06/01/19 16:06 Respiratory Rate 16 06/01/19 16:06 Blood Pressure 184/87 H 06/01/19 16:06 Pulse Oximetry 98 06/01/19 16:06 Const General: cooperative and comfortable Limitations: mental status not altered HENMT Head: normal to inspection and normocephalic Resp Effort & Inspection: normal respiratory effort Auscultation: clear to auscultation bilaterally Cardio Rate: regular rate Rhythm: regular rhythm GI Inspection: non-distended Palpation: soft and No firm Skin Lesions: no lesions Rashes: no rashes Neuro General: alert, awake and oriented x3 Cognition: normal cognition Speech: speech normal Extrem General: normal to inspection, capillary refill normal and No edema Psych Appearance: grossly normal and well kempt Course Orders Ordered: ED Orders 06/01/19 15:58 XR chest 1V Stat EKG-12 Lead Stat 06/01/19 16:20 Complete Blood Count AUTO DIFF Stat Comprehensive Metabolic Panel Stat Lipase Stat Troponin I Stat Discontinued Medications Al Hydrox/Mg Hydrox/Simethicone 20 ml/ Lidocaine HCl 15 ml 0 ml PO NOW ONE Stop: 06/01/19 16:22 Last Admin: 06/01/19 17:04 Dose: 15 ml Documented by: FRANCI Pantoprazole Sodium (Protonix) 40 mg IV NOW ONE Stop: 06/01/19 16:22 Last Admin: 06/01/19 17:03 Dose: 40 mg Documented by: FRANCI Vital Signs Vital signs: Vital Signs - 8 hr 06/01/19 16:06 06/01/19 16:58 Temperature 98.1 F Pulse Rate 88 81 Respiratory Rate 16 24 Blood Pressure 184/87 H Blood Pressure [Right Arm] 174/71 H Pulse Oximetry 98 Medical Decision Making Medical Records Medical records reviewed: Yes I reviewed the patient's medical records. Lab Data Lab results reviewed: Yes I reviewed the patient's lab results. Result diagrams: 06/01/19 16:20 06/01/19 16:20 Labs: Lab Results 06/01/19 06/01/19 Range/Units 16:20 16:20 WBC 8.2 (4.5-11.0) X10^3/uL RBC 5.75 H (4.0-5.2) X10^6/uL Hgb 16.5 H (12.0-16.0) g/dL Hct 48.3 H (36-46) % MCV 84.0 (80-100) fL MCH 28.6 (26-34) PG MCHC 34.1 (30-36) % RDW 13.3 (11.6-14.8) % Plt Count 166 (150-400) X10^3/uL Neut % (Auto) 55.5 (50-75) % Lymph % (Auto) 32.4 (25-40) % [place] % (Auto) 7.6 (3-14) % Eos % (Auto) 3.5 (2-4) % Baso % (Auto) 1.0 (0-2) % Neut # (Auto) 4500 (6135-8411) /uL Lymph # (Auto) 2600 (7921-4630) /uL Sunflower # (Auto) 600 (0-900) /uL Eos # (Auto) 300 (0-450) /uL Baso # (Auto) 100 (0-100) /uL Sodium 136 L (137-145) mmol/L Potassium 4.4 (3.4-5.1) mmol/L Chloride 98 (98-107) mmol/L Carbon Dioxide 26 (22-32) mmol/L BUN 14 (7-17) mg/dL Creatinine 0.78 (0.52-1.04) mg/dL Estimated GFR > 60.0 (>60) mL/min BUN/Creatinine Ratio 17.9 (6-22) Glucose 288 H (80-110) mg/dL Calcium 10.7 H (8.4-10.2) mg/dL Total Bilirubin 0.8 (0.2-1.3) mg/dL AST 66 H (14-36) IU/L ALT 45 H (<35) IU/L Alkaline Phosphatase 67 (38-126) U/L Troponin I < 0.012 (0.01-0.034) ng/mL Total Protein 8.4 H (6.3-8.2) g/dL Albumin 4.9 (3.5-5.0) g/dL Globulin 3.5 (1.7-4.1) g/dL Albumin/Globulin Ratio 1.4 (1.0-2.8) Lipase 327 H (23-300) U/L Imaging Data Chest x-ray: Radiologist's Impression: [address] [address] XRay Report Signed Patient: Tu Gore FMR#: [id number] : 1950Acct:[id number] Age/Sex: 68 / FDate of Service: 06/01/19 Loc: ED Accession Number: [id number] Procedure: XR chest 1V Ordering Provider: Thomas Berry D.O. PROCEDURE: XR CHEST 1V INDICATIONS: Chest pain TECHNIQUE: One view of the chest was acquired. COMPARISON: [facility], CHEST 1 VIEW, 11/04/2013, 13:39. FINDINGS: Surgical changes and devices: None. Lungs and pleura: Lungs are clear. No pleural effusions or pneumothorax. Mediastinum: Mediastinal contours appear normal. Heart size is normal. Bones and chest wall: No suspicious bony lesions. Overlying soft tissues appear unremarkable. IMPRESSION: No acute cardiopulmonary disease. Dictated by: Ani Valente M.D. on 06/01/2019 at 16:20 Approved by: Ani Valente M.D. on 06/01/2019 at 16:21 ECG Data Attestation: I personally reviewed and interpreted this ECG as follows: Prior ECG tracings: not available for review Interpretation: Sinus rhythm Ventricular rate 83 Left axis deviation Normal QRS Normal QTC No ST T wave changes MDM Narrative Medical decision making narrative: Chest x-ray is negative, troponin negative greater than 6 hours after the onset of symptoms. She has actually had symptoms consistently for the past 2 days. Did have improvement of symptoms after the GI medications here in the ER. I did discuss with her the concern for ACS. We did discuss return precautions. We did discuss follow-up instructions with her primary doctor. Due to the recall on Zantac we will switch her to famotidine. Will also add Carafate. We did discuss how to use these medications. I do have a high suspicion today that her symptoms are GI related although I did inform her that if her symptoms do return or change or she would develop any new symptoms she should return to the emergency department. Also informed that she should contact her primary doctor to discuss further workup. Patient expressed understanding and agreement. Discharge Plan Departure Patient Disposition: Home Clinical Impression: Atypical chest pain Discharge Date/Time: 06/01/19 17:58 Instructions: DI for Gastroesophageal Reflux Disease (GERD), DI for Atypical Chest Pain Activity Restrictions/Additional Instructions: Recommend that you stop taking the Ranitidine/Zantac in start taking the new medications as directed. I do recommend you contact your primary provider for follow-up in to discuss further workup. Return to the emergency department for any new or worsening symptoms. Prescriptions: New sucralfate [Carafate] 1 gram tablet 1 gram PO QACHS Qty: 90 RF: 0 famotidine 20 mg tablet 20 mg PO BID Qty: 60 RF: 0 No Action ranitidine HCl [Zantac] 150 MG tablet 150 mg PO BID Qty: 30 RF: 0 ondansetron 4 mg tablet,disintegrating 4 mg PO Q6H PRN (Reason: nausea and vomiting) Qty: 10 RF: 0 duloxetine [Cymbalta] 30 MG capsule,delayed release(DR/EC) 30 mg PO DAILY RF: 0 Allergy Relief(diphenhydramin) 1 tab PO PRN PRN (Reason: Allergy Symptoms) RF: 0 aspirin 81 mg Tablet,Delayed Release (Dr/Ec) 81 mg PO DAILY RF: 0 glipizide 2.5 mg tablet extended release 24hr 2.5 mg PO BID RF: 0 metformin 1,000 mg Tablet 1,000 mg PO BID RF: 0 montelukast 10 mg Tablet 10 mg PO BEDTIME RF: 0 gabapentin 100 mg Capsule 200 mg PO BID RF: 0 lisinopril 2.5 mg tablet 2.5 mg PO DAILY RF: 0 rosuvastatin 40 mg tablet 40 mg PO QPM RF: 0 meclizine 25 mg tablet 50 mg PO BID PRN (Reason: vertigo) Qty: 10 RF: 0 Referrals: Brittney Clancy MD [Primary Care Provider] -
[2019-06-01 16:06] VITALS: BP 184/87; PULSE 88; RESP 16; TEMP 36.7; O2SAT 98; BMI 31.3
[2019-06-01 16:39] LABS: Add Manual Diff / Slide Review NO; Basophils Absolute Auto 100 /uL (0-100); Eosinophils Absolute Auto 300 /uL (0-450); Eosinophils Percent Auto 3.5 % (2-4); Hematocrit 48.3 % (36-46); Hemoglobin 16.5 g/dL (12.0-16.0); Lymphocytes Absolute Auto 2600 /uL (1100-4500); Lymphocytes Percent Auto 32.4 % (25-40); Mean Corpuscular HGB Conc 34.1 % (30-36); Mean Corpuscular Hemoglobin 28.6 PG (26-34); Monocytes Absolute Auto 600 /uL (0-900); Monocytes Percent Auto 7.6 % (3-14); Neutrophils Absolute Auto 4500 /uL (1500-7000); Neutrophils Percent Auto 55.5 % (50-75); Platelet Count 166 X10^3/uL (150-400); Red Blood Cell Count 5.75 X10^6/uL (4.0-5.2); Red Cell Distribution Width 13.3 % (11.6-14.8); White Blood Cell Count 8.2 X10^3/uL (4.5-11.0)
[2019-06-01 16:55] LABS: Alanine Aminotransferase 45 IU/L (<35); Albumin 4.9 g/dL (3.5-5.0); Albumin Globulin Ratio 1.4 (1.0-2.8); Alkaline Phosphatase 67 U/L (38-126); Aspartate Aminotransferase 66 IU/L (14-36); BUN Creatinine Ratio 17.9 (6-22); Bilirubin Total 0.8 mg/dL (0.2-1.3); Blood Urea Nitrogen 14 mg/dL (7-17); Calcium 10.7 mg/dL (8.4-10.2); Carbon Dioxide 26 mmol/L (22-32); Chloride 98 mmol/L (98-107); Estimated Glomerular Filt Rate > 60.0 mL/min (>60); Globulin 3.5 g/dL (1.7-4.1); Glucose 288 mg/dL (80-110); Lipase 327 U/L (23-300); Sodium 136 mmol/L (137-145); Total Protein 8.4 g/dL (6.3-8.2)
[2019-06-01 16:58] VITALS: BP 174/71; PULSE 81; RESP 24
[2019-06-01 16:59] LABS: HEMOLYSIS 80 (0-50); Potassium 4.4 mmol/L (3.4-5.1)
[2019-06-01] MEDS: PANTOPRAZOLE 40 MG VIAL IV (17:03)
[2019-06-01] MEDS: MAG HYDROX/ALUMINUM/SIMETH SUS 20 ML, LIDOCAINE VISCOUS 2% 15 ML PO (17:04)
[2019-06-01 17:06] LABS: Troponin I < 0.012 ng/mL (0.01-0.034)
--- NOTE | 2019-06-01 17:23 | PC.NURSE ---
Patient resting in bed with at bedside. No needs voiced at this time. Awaiting all lab results. Patient states that she has had one or two bad episodes of pain that are brief but pain only 3/10 at this time.
== END 2019-06-01 17:58 | disposition home or self-care (01) ==
PROVIDERS: Emergency Provider Emergency Medicine; PCP Family Medicine
DX: R07.89 Other chest pain (principal); R10.13 Epigastric pain; K21.9 Gastro-esophageal reflux disease without esophagitis; E11.9 Type 2 diabetes mellitus without complications
CPT/HCPCS: 36415; 71045; 80053; 83690; 84484; 85025; 93005; 96374; 99284; 99285; C9113

== ENCOUNTER → 2021-09-05 10:02 | Outpatient (CLI) | payer MEDICARE, OTHER, SELFPAY ==
[2021-09-05 13:42] LABS: COVID19 -Nasal RAPID Negative (Negative)
== END ==
PROVIDERS: PCP Family Medicine; Visit Provider Surgery
DX: Z20.822 Contact with and (suspected) exposure to COVID-19 (principal); Z01.812 Encounter for preprocedural laboratory examination
CPT/HCPCS: 87635; C9803

== ENCOUNTER 2021-09-06 07:27 | Day surgery (SDC) | payer MEDICARE, OTHER, SELFPAY ==
[2021-09-06] VITALS (8 sets, daily range): BP systolic 117–168; BP diastolic 64–95; PULSE 60–95; RESP 12–18; TEMP 36.1–36.4; O2SAT 95–99; BMI 28.5
--- NOTE | 2021-09-06 | PATH_ITS ---
[facility] Accession Number: [id number] . 01 Material submitted: . PART A: stomach - ANTRUM BIOPSIES PART B: stomach - ANTRAL ULCER BIOPSY PART C: stomach - GASTRIC BODY ULCER BIOPSY PART D: esophagus, E-G Junction - GE JUNCTION BIOPSIES PART E: colon - TRANSVERSE COLON POLYP PART F: colon - ASCENDING COLON POLYP . 01 Clinical history: . [facility] ENCOUNTER FOR SCREENING FOR MALIGNANT NEOPLASM PERSONAL HISTORY OF OTHER DISEASES OF THE DIGESTIVE PERSONAL HISTORY OF COLONIC POLYPS . 01 Diagnosis: A-B. Antrum, Antral Ulcer, Biopsy: Antral-type mucosa with mild chronic gastritis. No evidence of Helicobacter on H/E stain. Negative for intestinal metaplasia. Negative for dysplasia and malignancy. . C. Stomach, Body Ulcer, Biopsy: Body-type mucosa with mild chronic gastritis. Negative for Helicobacter by immunohistochemistry. Negative for intestinal metaplasia. Negative for dysplasia and malignancy. . D. Gastroesophageal Junction, Biopsies: Ulcerated squamocolumnar junctional mucosa. A PAS stain is negative for fungal organisms. Negative for intestinal metaplasia. Negative for dysplasia and malignancy. . E. Transverse Colon, Polyp, Biopsy: Tubular adenoma. . F. Ascending Colon, Polyp, Biopsy: Colonic mucosa with no diagnostic abnormality, consistent with polypoid redundancy. Additional levels were examined. [facility] 09/13/2021 1533 Local . 01 Electronically signed: . Shayy Small MD, Pathologist NPI- [id number] . 01 Gross description: . Part A: ANTRUM BIOPSIES: Received in formalin is 1 fragment(s) of trin[place], soft tissue measuring 0.3 x 0.2 x 0.1 cm submitted entirely in 1 cassette(s) Part B: ANTRAL ULCER BIOPSY: Received in formalin is 1 fragment(s) of tr[place], soft tissue measuring 0.3 x 0.2 x 0.1 cm submitted entirely in 1 cassette(s) Part C: GASTRIC BODY ULCER BIOPSY: Received in formalin is 1 fragment(s) of trin[place], soft tissue measuring 0.3 x 0.2 x 0.1 cm submitted entirely in 1 cassette(s) Part D: GE JUNCTION BIOPSIES: Received in formalin is 1 fragment(s) of tr[place], soft tissue measuring 0.3 x 0.1 x 0.1 cm submitted entirely in 1 cassette(s) Part E: TRANSVERSE COLON POLYP: Received in formalin are 2 fragment(s) of trin[place], soft tissue measuring 1.0 x 0.2 x 0.2 cm to 0.7 x 0.2 x 0.2 cm submitted entirely in 1 cassette(s) Part F: ASCENDING COLON POLYP: Received in formalin is 1 fragment(s) of trin[place], soft tissue measuring 0.8 x 0.2 x 0.2 cm submitted entirely in 1 cassette(s) /CPE 09/07/2021 0605 Local . 01 Microscopic: . C. An immunohistochemical stain was performed to evaluate for Helicobacter organisms and is negative. The control stain showed appropriate reactivity. . D. An AB/PAS stain is performed to evaluate for fungal organisms, and is negative. The control stain showed appropriate reactivity. . F. Additional levels were examined. . * This test was developed and its performance characteristics determined by [facility]. It has not been cleared or approved by the U.S. Food and Drug Administration. The FDA has determined that such clearance or approval is not necessary. This test is used for clinical purposes. It should not be regarded as investigational or for research. . 01 Pathologist provided ICD-10: D12.3, R10.9 . 01 CPT . 402201, 105341, 026866, 397387, 636054, 785143, D10026, 281030 Specimen Comment: A courtesy copy of this report has been sent to [phone] Performed at: 01 [facility] [address] [place] [address], [place], [place] [id number] MD Rolan Casiano MD Phone: [phone]
[2021-09-06] MEDS: LACTATED RINGERS 1,000 ML 42 ML IV (08:12)
--- NOTE | 2021-09-06 09:09 | PM.HP.1 ---
History of Present Illness History of Present Illness Date Patient Seen: 09/06/21 Time Patient Seen: 09:09 Chief complaint: SDC Narrative: Tu is a 70-year-old woman who has a history of polyps and history of Rodriguez's esophagus. See office note for details. Patient History Medical History Diabetes Surgical History History of knee replacement History of total mastectomy Status post hysterectomy Family & Social History Family History Mother Cancer of breast Sister Cancer of breast Social History: household members spouse Tobacco & Substance use: Smoking Status Never smoker alcohol intake former alcohol intake frequency 0-2 drinks per day Substance Use Type marijuana Meds Home Medications and Allergies Home Medications Medication Instructions Recorded Confirmed Type Allergy Relief(diphenhydramin) 1 tab PO PRN PRN Allergy Symptoms 08/11/17 09/06/21 History aspirin 81 mg tablet,delayed 81 mg PO DAILY 08/11/17 09/06/21 History release duloxetine 30 mg capsule,delayed 30 mg PO DAILY 08/11/17 08/11/17 History release (Cymbalta) metformin 1,000 mg tablet 1,000 mg PO BID 08/11/17 08/11/17 History montelukast 10 mg tablet 10 mg PO BEDTIME 08/11/17 08/11/17 History rosuvastatin 40 mg tablet 40 mg PO QPM 08/11/17 08/11/17 History ondansetron 4 mg disintegrating 4 mg PO Q6H PRN nausea and 04/11/19 Rx tablet vomiting #10 tabs duloxetine 30 mg capsule,delayed 30 mg PO DAILY 08/03/21 08/03/21 History release exenatide microspheres 2 mg/0.85 2 mg SUBCUT QWEEK 08/03/21 08/03/21 History mL subcutaneous auto-injector glipizide 5 mg tablet 5 mg PO BID 08/03/21 08/03/21 History ketoconazole 2 % topical cream 1 applic topical DAILY 08/03/21 08/03/21 History lisinopril 5 mg tablet 5 mg PO DAILY 08/03/21 08/03/21 History meclizine 25 mg tablet 25 mg PO TID PRN Abdominal 08/03/21 08/03/21 History Discomfort omeprazole 20 mg capsule,delayed 20 mg PO DAILY 08/03/21 08/03/21 History release sodium sul 1.479 gram-potas ch See Rx Instructions PO PER PKG DIR 08/07/21 Rx 0.188 gram-magnes sul 0.225 gram #24 tabs tablet (Sutab) Allergies Allergy/AdvReac Type Severity Reaction Status Date / Time codeine Allergy Mild EMESIS Verified 09/06/21 07:59 penicillin V Allergy Mild UNKNOWN Verified 09/06/21 07:59 Opioids - Morphine Analogues AdvReac Severe DEPENDENCE Verified 09/06/21 07:59 [OPIOIDS - MORPHINE ANALOGUES] Exam Vital Signs (past 8 hours): - 09/06/21 07:47 Temperature 96.9 F L Pulse Rate 95 H Respiratory Rate 15 Blood Pressure 168/95 H Pulse Oximetry 99 Oxygen Delivery Method Room Air Oxygen Delivery Method Room Air Const General: comfortable Resp Effort & Inspection: normal respiratory effort Assessment & Plan Assessment and plan (1) Barretts esophagus: Qualifiers: Rodriguez's esophagus type: without dysplasia Qualified Code(s): K22.70 - Rodriguez's esophagus without dysplasia Status: Acute (2) History of colon polyps: Status: Acute Plan We will proceed with upper and lower endoscopy. She understands the risks and would like to proceed Time Spent With Patient Critical Care time: I spent a total of [] minutes of critical care time on this patient's care today; this time is exclusive of procedural time.
[2021-09-06] MEDS: MIDAZOLAM 5 MG/5 ML VIAL 8 MG IV ×2 (09:22→09:48)
[2021-09-06] MEDS: fentaNYL 250 MCG/5 ML INJ 125 MCG IV ×2 (09:22→09:48)
[2021-09-06] MEDS: LIDOCAINE 4% SOLN 50 ML 20 ML TOP (09:55)
--- NOTE | 2021-09-06 10:02 | PM.OP.EC ---
Operative Date/Time/Diagnoses Date of procedure: 09/06/21 Time of procedure: 10:02 Pre-op diagnosis: History of Rodriguez's esophagus and colon polyps Post-op diagnosis: same Procedure & Clinicians Study performed: EGD and colonoscopy Same procedure as scheduled: Yes Surgeon: Dominick Hobson Procedure Notes Procedure in detail: Surgeon: Dominick Hobson MD Procedure in detail: A timeout was performed. A bite blocked was placed and monitors were attached to the patient. The patient was positioned in a left lateral decubitus position. Sedation was administered with Versed and fentanyl. Once the patient was sedated the endoscope was inserted through the bite block and passed through the esophagus and stomach and into the duodenum. The duodenum and the duodenal bulb were normal. There was some old clot in the stomach. Random biopsies were taken from the antrum. There was a small antral ulcer and biopsies were taken from the edge of this ulcer. There was a small ulcer in the body of the stomach and biopsies were taken from the edge of it. The endoscope was retroflexed and no abnormalities noted in the proximal stomach. The endoscope was straightned and withdrawn into the esophagus. There was a small patch of salmon-colored mucosa at the GE junction and biopsies were taken from this tissue. The patch was small enough that only 2 biopsies could be taken from it. The rest of the GE junction and esophagus were normal. Findings: Old blood in the stomach, 2 small ulcers in the stomach and a very small patch of salmon-colored mucosa at the GE junction Next we repositioned the patient for a colonoscopy. A digital rectal exam was performed and was normal. The colonoscope was inserted and advanced to the cecum. The appendiceal orifice was identified and photographed. The scope was slowly withdrawn over greater than 6 minutes. There was a 6 mm polyp in the ascending colon was removed with a cold snare. There was a 8 mm polyp in the transverse colon removed with cold snare. There was a 6 mm polyp in the transverse colon removed with a cold snare. There was some scattered diverticulosis in the sigmoid colon. The scope was retroflexed in the rectum and no abnormality was noted. Findings: 6 mm polyp in the ascending colon, 8 mm polyp in the transverse colon and 6 mm polyp in the transverse colon, scattered diverticulosis EBL: 5 mL Scope withdrawal time: 12 Sedation minutes: 38 Post-procedure Recommendations: Will call with biopsy results Disposition: PACU
--- NOTE | 2021-09-06 10:45 | SUR.PHASEII ---
Discharge instructions given to pt. pt states she understands discharge instructions pt to be discharged with her . No distress noted. pt does suffer from ataxia.
== END 2021-09-06 10:47 | disposition home or self-care (01) ==
PROVIDERS: PCP Family Medicine; Referring Provider Surgery; Visit Provider Surgery
PROC: 0DJ08ZZ Inspection of Upper Intestinal Tract, Via Natural or Artificial Opening Endoscopic (ICD-10-PCS; CPT 43235; principal; 2021-09-06 08:30)
PROC: 0DJD8ZZ Inspection of Lower Intestinal Tract, Via Natural or Artificial Opening Endoscopic (ICD-10-PCS; CPT 45378; 2021-09-06 08:30)
DX: Z12.11 Encounter for screening for malignant neoplasm of colon (principal); Z86.010 Personal history of colon polyps; Z87.19 Personal history of other diseases of the digestive system; K25.9 Gastric ulcer, unspecified as acute or chronic, without hemorrhage or perforation; K57.30 Diverticulosis of large intestine without perforation or abscess without bleeding; Z79.84 Long term (current) use of oral hypoglycemic drugs; K29.50 Unspecified chronic gastritis without bleeding; D12.3 Benign neoplasm of transverse colon
CPT/HCPCS: 45385; 43239; 82962; 99152; 99153; J2250; J3010

== ENCOUNTER → 2022-12-30 11:58 | Outpatient (CLI) | payer MEDICARE, OTHER, SELFPAY ==
--- NOTE | 2022-12-30 | DI.RAD.S_ITS ---
PROCEDURE: XR ABDOMEN 1V INDICATIONS: constipation TECHNIQUE: One view of the abdomen acquired. COMPARISON: None. FINDINGS: Surgical changes and devices: Surgical clips are seen in the pelvis. Right proximal femur fixation hardware is noted. Slightly radiopaque material is seen projecting over the upper abdomen, likely within the patient's clothing. Bowel: Moderate stool is seen throughout the colon, more prominent proximally. No signs of small bowel obstruction. Soft tissues: No suspicious abdominal calcifications. Visualized solid organ contours appear normal in size. Bones: No suspicious bony lesions. IMPRESSION: Moderate colonic stool. Approved by: Duane Styles M.D. on 12/30/2022 at 16:06
== END ==
PROVIDERS: PCP Family Medicine; Referring Provider Family Medicine; Visit Provider Family Medicine
DX: K59.00 Constipation, unspecified (principal)
CPT/HCPCS: 74018

== ENCOUNTER → 2024-05-11 15:34 | Outpatient (CLI) | payer MEDICARE, SELFPAY ==
--- NOTE | 2024-05-11 15:44 | DI.US.S_ITS ---
PROCEDURE: US JUAN FRANCISCO LIMITED SINGLE LEVEL INDICATIONS: CHANGE OF SKIN COLOR TECHNIQUE: Ankle-brachial indices were obtained bilaterally and recorded. COMPARISONS: FINDINGS: Right ankle brachial index (JUAN FRANCISCO): 0.93 Left ankle brachial index (JUAN FRANCISCO): 1.06 IMPRESSION: Minimally decreased right ankle brachial index. Normal left ankle brachial index. Dictated by: Elbert Archuleta M.D. on 05/12/2024 at 10:19 Approved by: Elbert Archuleta M.D. on 05/12/2024 at 10:21
== END ==
PROVIDERS: PCP Family Medicine; Referring Provider Family Medicine; Visit Provider Family Medicine
DX: R23.8 Other skin changes (principal)
CPT/HCPCS: 93922